=== PATIENT | male | born 1960 | race Caucasian/White ===

== ENCOUNTER 2020-01-22 11:08 | Outpatient (CLI) | payer BC, SELFPAY ==
--- NOTE | ~2020-01-22 | XR_ITS ---
XR lumbar spine 2-3V DATE: 01/22/2020 11:31 INDICATION: Chronic low back pain TECHNIQUE: AP, lateral, coned lateral lumbosacral views COMPARISON: None FINDINGS: There is up to approximately 25% loss of height of L3 due to anterior wedge compression fr acture deformity of undetermined terminal age, possibly recent. No other lumbar spine fracture or bone destruction is evident. The lumbar pedicles are intact. There is evidence of a posteriorly displaced coccygeal fracture of uncertain age. There is prominent posterior spurring at L2-3 and L3-4. There is moderate degenerative disease at L2- 3, L3-4. There is moderately severe degenerative disc disease at L4-5 and L5-S1. The sacroiliac joints appear normal. IMPRESSION: L3 anterior wedge compression fracture deformity, possibly recent Multilevel degenerative disc disease of the lumbar and lumbar spine Dorsally displaced coccygeal fracture of undetermined age Reviewed, dictated and finalized at location B.
== END 2020-01-22 11:09 | disposition home or self-care (01) ==
PROVIDERS: PCP Internal Medicine; Visit Provider Internal Medicine
DX: M54.5 Low back pain (principal)
CPT/HCPCS: 72100

== ENCOUNTER 2022-08-17 09:12 | Outpatient (CLI) | payer BC, SELFPAY ==
--- NOTE | ~2022-08-17 | US_ITS ---
EXAMINATION: US arterial ankle brachial ind DATE: 08/17/2022 10:48 INDICATION: Peripheral arterial occlusive disease to the bilateral lower limbs. TECHNIQUE: Segmental pressures and plethysmographic and Doppler waveforms of the brachial and lower e xtremity arteries were obtained. COMPARISON: None. FINDINGS: Right and left brachial artery pressures of 122 mm Hg and 228 mm Hg, respectively, are concordant (no rmal difference <= 30 mmHg). The right ankle-brachial index (LALY) is 1.06 (normal >= 0.9-1.0). The right great toe-brachial index (TBI) is 0.54 (normal >= 0.65). Arterial Doppler waveforms are triphasic with brisk systolic upstroke s at both right posterior tibial and dorsalis pedis arteries. The left LALY is 1.09. The left TBI is 0.59. Arterial Doppler waveforms are triphasic with brisk systo lic upstrokes at both left posterior tibial and dorsalis pedis arteries. IMPRESSION: 1. Mild arterial occlusive disease to the bilateral lower limbs with mildly decreased bilateral TBIs but normal ABIs. Reviewed, dictated and finalized at location A. L OPERATOR GIN IMPRESSION: 1. Mild arterial occlusive disease to the bilateral lower limbs with mildly dec reased bilateral TBIs but normal ABIs.
--- NOTE | ~2022-08-17 | US_ITS ---
EXAMINATION: US carotid duplex BI DATE: 08/17/2022 10:49 INDICATION: Carotid bruits. TECHNIQUE: Grayscale, color Doppler, and pulsed Doppler images of the cervical carotid arteries were obtained. The degree of vessel stenosis is placed in one of the following categories: normal, <50%, 5 0-69%, >=70% but less than near-occlusion, near-occlusion, or total occlusion. Note that percent sten osis relative to normal distal artery lumen diameter is indirectly measured from velocity measurement s as described by Junior, et al. Radiology 2003; 229:340-346. COMPARISON: None. FINDINGS: RIGHT: The right common carotid artery (CCA) peak systolic velocity (PSV) is 82 cm/s. The right internal car otid artery (ICA) PSV is 68 cm/s. The right ICA end-diastolic velocity (EDV) is 27 cm/s. The right IC A/CCA PSV ratio is 0.8. Grayscale and color Doppler images yield an estimate of <50% diameter reducti on from minimal plaque in the ICA. The external carotid artery (ECA) PSV is 59 cm/s. There is antegra de flow in the right vertebral artery. LEFT: The left CCA PSV is 67 cm/s. The left ICA PSV is 76 cm/s. The left ICA EDV is 33 cm/s. The left ICA/C CA PSV ratio is 1.1. Grayscale and color Doppler images yield an estimate of <50% diameter reduction from minimal plaque in the ICA. The ECA PSV is 78 cm/s. There is antegrade flow in the left vertebral artery. IMPRESSION: 1. <50% stenosis from minimal plaque in the right internal carotid artery. 2. <50% stenosis from minimal plaque in the left internal carotid artery. Reviewed, dictated and finalized at location A. ESS/WELLNESS DIRECTOR
== END 2022-08-17 09:13 | disposition home or self-care (01) ==
PROVIDERS: PCP Internal Medicine; Visit Provider Internal Medicine
DX: I73.9 Peripheral vascular disease, unspecified (principal); I65.23 Occlusion and stenosis of bilateral carotid arteries
CPT/HCPCS: 93880; 93922

== ENCOUNTER 2023-10-16 08:32 | Outpatient (CLI) | payer MEDICARE, SELFPAY ==
--- NOTE | ~2023-10-16 | US_ITS ---
US arterial ankle brachial ind INDICATION: Peripheral arterial disease TECHNIQUE: Segmental pressures and plethysmographic and Doppler waveforms of the brachial and lower e xtremity arteries were obtained. COMPARISON: 08/17/2022. FINDINGS: Right and left brachial artery pressures of 111 mm Hg and 112 mm Hg, respectively, are concordant (no rmal difference <= 30 mmHg). The right ankle-brachial index (LALY) is 1.34 (normal >= 0.9-1.0). The right great toe-brachial index (TBI) is 1.34 (normal >= 0.60). The left LALY is 1.22. The left TBI is 1.05. IMPRESSION: 1. Normal bilateral lower extremity ankle brachial indices. Reviewed, dictated and finalized at location B.
== END 2023-10-16 08:33 | disposition home or self-care (01) ==
LOC: CHSIMG 08:34
PROVIDERS: PCP Internal Medicine; Visit Provider Internal Medicine
DX: I73.9 Peripheral vascular disease, unspecified (principal)
CPT/HCPCS: 93922

== ENCOUNTER 2024-10-20 07:54 | Outpatient (CLI) | payer MEDICARE, SELFPAY ==
--- NOTE | ~2024-10-20 | US_ITS ---
EXAMINATION: US carotid duplex BI DATE: 10/20/2024 08:55 INDICATION: Carotid stenosis TECHNIQUE: Grayscale, color Doppler, and pulsed Doppler images of the cervical carotid arteries were obtained. The degree of vessel stenosis is placed in one of the following categories: normal, <50%, 5 0-69%, >=70% but less than near-occlusion, near-occlusion, or total occlusion. Note that percent sten osis relative to normal distal artery lumen diameter is indirectly measured from velocity measurement s as described by Junior, et al. Radiology 2003; 229:[id number]. Notes: Normal: Peak systolic velocity <125 centimeters/sec and no plaque <50%. Peak systolic velocity <125 ( EDV <40; ICA/CCA PSV ratio <2.0; used these factors only a tandem lesions or low cardiac output or co ntralateral disease) 50-69 %: PSV 125-230 (EDV 40-100; ratio 2-4) >= 70% but less than near occlusion: PSV greater than 230 (EDV > 100; ratio> 4.0) Near Occlusion: PSV that is variable; markedly narrowed lumen Occlusion: Absent flow on color/spectral Doppler and no lumen on lerner scale. COMPARISON: None. FINDINGS: RIGHT: The right common carotid artery (CCA) peak systolic velocity (PSV) is 89 cm/s. The right internal car otid artery (ICA) PSV is 70 cm/s. The right ICA end-diastolic velocity (EDV) is 25 cm/s. The right IC A/CCA PSV ratio is 0.82. The external carotid artery (ECA) PSV is 89 cm/s. There is antegrade flow in the right vertebral artery. LEFT: The left CCA PSV is 134 cm/s. The left ICA PSV is 79 cm/s. The left ICA EDV is 35 cm/s. The left ICA/ CCA PSV ratio is 0.5. The ECA PSV is 93 cm/s. There is antegrade flow in the left vertebral artery. IMPRESSION: 1. Less than 50% stenosis in the right internal carotid artery by sonographic criteria. 2. Less than 50% stenosis in the left internal carotid artery by sonographic criteria. Reviewed, dictated and finalized at location A. IMPRESSION: 1. Less than 50% stenosis in the right internal carotid artery by sonographic francesca ambrose. 2. Less than 50% stenosis in the left internal carotid artery by sonographic kalen chapman.
--- NOTE | ~2024-10-20 | US_ITS ---
US arterial ankle brachial ind INDICATION: Carotid stenosis TECHNIQUE: Segmental pressures and plethysmographic and Doppler waveforms of the brachial and lower e xtremity arteries were obtained. COMPARISON: None. FINDINGS: Right and left brachial artery pressures of 114 mm Hg and 121 mm Hg, respectively, are concordant (no rmal difference <= 30 mmHg). There is biphasic flow in the dorsalis pedis and posterior tibial arteri es bilaterally. The right ankle-brachial index (LALY) is 1.36 (normal >= 0.9-1.0). The right great toe-brachial index (TBI) is 1.36 (normal >= 0.60). The left LALY is 1.3. The left TBI is 1.22. IMPRESSION: 1. Normal ankle-brachial indices. Reviewed, dictated and finalized at location A.
--- OUTSIDE RECORDS SUMMARY | 2024-10-20 08:06 | XMS_ITS | Clinical Summary ---
Author Organization [facility] Yellow Pages Address [address] [place] [address] Care Team Providers Care Clerical Proofreader Name Role Phone Tiago Loyola MD Primary Care Provider [phone] John Garcia MD Unavailable [phone] Source Comments [facility] Yellow Pages,non-owned Affiliates and Associated Physician Practices is amultiple site organization consisting of ambulatory clinics and hospital sitesin [place], [place] and [place]. This disclosure is being madepursuant to the Care Everywhere program and may not contain all information available regarding this patient. Last updated 18.[facility] Yellow Pages Allergies No known active allergies Medications * Be aware that medications may not be up to date on this document. Alwaysverify current medications with the patient. nabumetone (RELAFEN) 750 MG tablet Take 1 Tab by mouth 2 times daily. 60 Tab 5 06/01/2014 Active metFORMIN (GLUCOPHAGE) 500 MG tablet Take 500 mg by mouth 2 times daily with morning and evening meal. Active glimepiride (AMARYL) 4 MG tablet Take 4 mg by mouth daily with breakfast. Active Social History Tobacco Use Types Packs/Day Years Used Date Smoking Tobacco: Never Assessed Sex and Gender Information Value Date Recorded Sex Assigned at Not on file Legal Sex Male 1:06 PM CDT Gender Identity Not on file Sexual Orientation Not on file Plan of Treatment Health Maintenance Due Date Last Done Comments COLOGUARD (AGES 45-75) - COL ON CA SCREENING 1958 COLON MONITORING 1958 COLONOSCOPY - COLON CA SCREENING 1958 CT COLONOGRAPHY - COLON CA SCREENING 1960 Colorectal Cancer Screening 1958 FIT - COLON CA SCREENING 1958 FLEX SIG - COLON CA SCREENING 1958 LIPID TESTING 1958 HEPATITIS C SCREENING 07/13/1976 DTAP/TDAP/TD VACCINES (1 - Tdap) 1977 PNEUMOCOCCAL VACCINE 50+ (1 of 1 - PCV) 2008 ZOSTER VACCINE (1 of 2) 2008 COVID-19 VACCINE (1 - 2023-2 5 season) 2024 DEPRESSION SCREENING 07/01/2024 INFLUENZA VACCINE (Season Ended) 2025 Respiratory Syncytial Virus (RSV) Vaccine Pt: or over 60 yrs (1 - 1-dose 75+ series) 2033 HEPATITIS B VACCINE Aged Out No longe r eligible based on patient's age to complete this topic HIB VACCINE Aged Out No longer eligi ble based on patient's age to complete this topic HPV VACCINE Aged Out No longer eligi ble based on patient's age to complete this topic MENINGOCOCCAL (Group B) VACC INE SHARED DECISION-MAKING Aged Out No longer eligibl e based on patient's age to complete this topic MENINGOCOCCAL GROUPS A/C/Y/W VACCINE Aged Out No longer eligible b ased on patient's age to complete this topic Insurance ANTH Care Teams Clerical Proofreader Relationship Specialty Start Date End Date Tiago Loyola MD [address] [place] [address] PCP - General Cardiovascular Disease 06/01/14 [place] [address] [place] [address] Orthopedic Surgery 06/01/14
--- OUTSIDE RECORDS SUMMARY | 2024-10-20 08:06 | XMS_ITS | Clinical Summary ---
Author Organization [facility] Medical Office Building [facility] Address [address] [place] [address] Care Team Providers Care Stone Setter Apprentice Name Role Phone Aline Loyola MD Primary Care Provider [phone] Allergies No known active allergies Medications glimepiride (AMARYL) 4 mg tabletIndicatio ns:type 2 diabetes mellitus Take 1 tablet (4 mg total) by mouth daily before breakfast Active metFORMIN (GLUCOPHAGE) 1,000 mg tablet Take 1,000 mg by mouth nightly as needed Active pregabalin (LYRICA) 300 mg capsule Take 1 capsule (300 mg total) by mouth 2 (two) times a day Active HYDROcodone-erick taminophen (NORCO) 10-325 mg per tablet Take 1 tablet by mouth every 4 (four) hours as needed 1 Active losartan (COZAAR) 50 mg tablet 3 Active coenzyme Q10 200 mg capsule Take 1 capsule (200 mg total) by mouth daily Active Active Problems Problem Noted Date Diagnosed Date Varicose veins of bilateral lower extremities with other complications 10/15/2020 Assessment & Plan (03/08/2021 9:51 AM CDT): Residual venous reflux in tributary veins and dining room manager veins bilaterally after successful EVLT bilaterally. He has stasis changes; left worse than right. We should continue with definitive treatment of his venous reflux to prevent future stasis changes. He'll need bilateral phlebectomy and dining room manager vein ligation starting on the left. Immunizations Immunization Administration Dates Next Due Influenza, Quadrivalent, Spl it, Intramuscular 07/22/2017,06/04/2016,04/12/2014 Influenza, Quadrivalent, Spl it, Preservative Free, Intramuscular 06/17/2019,03/27/2018 Influenza, Trivalent, Preser vative Free, Intramuscular 03/14/2015 Pneumococcal Conjugate PCV 13 03/14/2015 Tdap 03/31/2016 ZOSTER Recombinant 07/09/2018,02/12/2018 Surgical History Surgery Date Site/Laterality Comments CARPAL TUNNEL RELEASE Right ULNAR NERVE TRANSPOSITION Bilateral OTHER SURGICAL HISTORY Left stab avulsion phebectomy Medical History Medical History Date Comments Diabetes (HCC) Social History Tobacco Use Types Packs/Day Years Used Date Smoking Tobacco: Never Smokeless Tobacco: Never Tobacco Cessation:Counseling Given: Not Answered AUDIT-C Answer Date Recorded Q1: How often do you have a drink containing alc ohol? 2-3 times a week 03/07/2023 Q2: How many drinks containi ng alcohol do you have on a typical day when you are drinking? 1 or 2 03/07/2023 Q3: How often do you have si x or more drinks on one occasion? Never 03/07/2023 Sex and Gender Information Value Date Recorded Sex Assigned at Not on file Legal Sex Male 8:31 PM SAFETY COORDINATOR Gender Identity Male 01/07/2021 3:13 PM CDT Sexual Orientation Straight 01/07/2021 3: 13 PM CDT Obstetrics History Last Filed Vital Signs Vital Sign Reading Time Taken Comments Blood Pressure 124/88 03/07/2023 12:51 PM CDT Pulse 67 03/07/2023 12:51 PM CDT Temperature 37.1 C (98.7 F) 03/07/2023 12:51 PM CDT Respiratory Rate 18 03/07/2023 12:51 PM CDT Oxygen Saturation 99% 03/07/2023 12:51 PM CDT Inhaled Oxygen Concentration - - Weight 177.4 kg (391 lb) 03/07/2023 12:51 PM CDT Height 198.1 cm (6' 6 ) 03/07/2023 12:51 PM CDT Body Mass Index 45.18 03/07/2023 12:51 PM CDT Plan of Treatment Health Maintenance Due Date Last Done Comments Colon Cancer Screening-Colonoscopy 1958 Depression Screening 1958 Prostate Cancer Screening-PSA 1958 Hepatitis B Screening 1976 Pneumococcal vaccine 65+ (2 of 2 - PPSV23) 03/14/2016 03/14/2015 Fall Risk Assessment 04/27/2022 04/27/2021 Abdominal Aortic Aneurysm (A AA) Screen 2023 Well Visit 65+ 2023 Covid-19 Vaccine (5 - 2023-2 5 season) 2024 10/12/2021, 05/02/2021, 08/26/2020, Additional history exists Influenza Vaccine (Season Ended) 2025 06/17/2019, 03/27/2018, 07/22/2017, Additional history exists DTaP/Tdap/Td Vaccine (2 - Td or Tdap) 03/31/2026 03/31/2016 Zoster Vaccine Completed 07/09/2018, 02/12/2018 Hepatitis C Screening Completed 03/07/2023 Procedures Procedure Name Priority Date/Time Associated Diagnosis Comments HEPATITIS C ANTIBODY Routine 03/07/2023 1:40 PM CDT Positive ROHAN (antinuclear antibody) from Last 3 Months or Most Recently Relevant to Health Maintenance Results * Hepatitis C antibody Blood (03/07/2023 1:40 PM CDT) Hep C Ab Nonreactive Nonreactive Comment: Interpretive Data Nonreactive: Antibodies to HCV not detected. Does NOT exclude the possibility of recent exposure to HCV. Equivocal: Equivocal for HCV antibodies. Supplemental molecular testing will be automatically performed to determine infection status in accordance with current CDC screening recommendations. Reactive: Positive for HCV antibodies. This may represent current or past HCV infection. Supplemental molecular testing will be automatically performed to determine current infection status in accordance with current CDC screening recommendations. Interpretive data was last revised on 2019. Blood 03/07/2023 1:40 PM CDT 03/07/2023 5:19 PM CDT us Mayi Ritchie MD LAB MICROBIOLOGY - GENERAL ORDERABLES Final Result [facility] [address] [place] [address] from Last 3 Months or Most Recently Relevant to Health Maintenance Insurance [employer] [place] [employer] [place] [employer] [place] Care Teams Stone Setter Apprentice Relationship Specialty Start Date End Date Aline Loyola MD [address] [place] [address] PCP - General 01/12/20
--- OUTSIDE RECORDS SUMMARY | 2024-10-20 08:06 | XMS_ITS | Referral Summary ---
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 He has stasis changes; left worse than right. We should continue with definitive treatment of his venous reflux to prevent future stasis changes. He'll need bilateral phlebectomy and packing clerk vein ligation starting on the left. Immunizations Immunization Administration Dates Next Due Influenza, Quadrivalent, Spl it, Intramuscular 07/22/2017,06/04/2016,04/12/2014 Influenza, Quadrivalent, Spl it, Preservative Free, Intramuscular 06/17/2019,03/27/2018 Influenza, Trivalent, Preser vative Free, Intramuscular 03/14/2015 Pneumococcal Conjugate PCV 13 03/14/2015 Tdap 03/31/2016 ZOSTER Recombinant 07/09/2018,02/12/2018 Social History Tobacco Use Types Packs/Day Years [...] on file Legal Sex Male 8:31 PM URINALYSIS TECHNICIAN Gender Identity Male 01/07/2021 3:13 PM CDT Sexual Orientation Straight 01/07/2021 3: 13 PM CDT Last Filed Vital Signs Vital Sign Reading [...] 03/07/2023 12:51 PM CDT Plan of Treatment Not on file Procedures Procedure Name Priority Date/Time Associated Diagnosis [...] MICROBIOLOGY - GENERAL ORDERABLES Final Result [facility] [address] [place] [address] from Last 3 Months or Most Recently Relevant to Health Maintenance Insurance [id number] [place] [address] [employer] [place] [employer] [place] Care Teams Swine Genetics Researcher Relationship Specialty Start Date End Date Aline Loyola MD [address] [place] [address] PCP - General 01/12/20
== END 2024-10-20 07:55 | disposition home or self-care (01) ==
PROVIDERS: PCP Internal Medicine; Visit Provider Internal Medicine
DX: I73.9 Peripheral vascular disease, unspecified (principal); I65.23 Occlusion and stenosis of bilateral carotid arteries
CPT/HCPCS: 93880; 93922